=== PATIENT | female | born 1965 | race Caucasian/White ===

== ENCOUNTER 2019-12-21 08:07 | Day surgery (SDC) | payer MEDICARE ==
[2019-12-21] MEDS ORDERED: Sodium Chloride 0.9% 20 ML ONE (08:56)
[2019-12-21 09:45] LABS: Hemoglobin 7.5 g/dL (12.0-16.0)
[2019-12-21] MEDS ORDERED: Acetaminophen 325 MG TAB PO PRN (10:59)
[2019-12-21 15:03] LABS: Hemoglobin 8.2 g/dL (12.0-16.0)
[2019-12-21 15:32] VITALS: BP 158/96; TEMP 98.7
== END 2019-12-21 15:32 | disposition home or self-care (01) ==
LOC: ONC/OP 08:07
PROVIDERS: ATTEND Physician Assistant Medical
PROC: 30233N1 Transfusion of Nonautologous Red Blood Cells into Peripheral Vein, Percutaneous Approach (ICD-10-PCS; principal; 2019-12-21)
DX: D64.9 Anemia, unspecified (principal)
CPT/HCPCS: 36430; 85014; 85018; 86850; 86900; 86901; P9016

== ENCOUNTER 2020-02-14 20:47 | Emergency (ER) | payer MEDICARE ==
[2020-02-14] MEDS ORDERED: Morphine 4 MG/ML VIAL ONE (21:20)
[2020-02-14] MEDS ORDERED: Ondansetron PF 4 MG/2 ML Vial ONE (21:20)
[2020-02-14 21:38] LABS: Bilirubin Negative (Negative); Blood, Urine Negative (Negative); Clarity Clear (Clear); Glucose, Urine (Dipstick) 70 mg/dL (Negative); Leukocyte Negative Leu/uL (Negative); Nitrite Negative (Negative); Protein, Urine (Dipstick) Negative (Neg-Trace); Urobilinogen Normal mg/dL (Less than 2)
== END 2020-02-14 23:10 | disposition home or self-care (01) ==
LOC: ERS 20:47
DX: K42.9 Umbilical hernia without obstruction or gangrene (principal); F17.210 Nicotine dependence, cigarettes, uncomplicated; F41.9 Anxiety disorder, unspecified; F32.9 Major depressive disorder, single episode, unspecified; Z79.899 Other long term (current) drug therapy
CPT/HCPCS: 81003; 96374; 96375; J2270; J2405

== ENCOUNTER 2021-02-07 13:49 | Outpatient (CLI) | payer MEDICARE | END 2021-02-07 13:50 | disposition home or self-care (01) | LOC: BICRAD 13:49 | PROVIDERS: ATTEND Family Medicine | DX: M54.5 Low back pain (principal); M47.816 Spondylosis without myelopathy or radiculopathy, lumbar region; M41.9 Scoliosis, unspecified; K44.9 Diaphragmatic hernia without obstruction or gangrene | CPT/HCPCS: 72100 ==